=== PATIENT | male | born 1945 | race African-American/Black ===

== ENCOUNTER 2017-03-17 02:20 | Inpatient (IN) | payer MEDICARE, OTHER ==
--- NOTE | ~2017-03-17 | EKG ---
PATIENT: RENNY BAGLEY UNIT #: [id number] Ventricular Rate: 59 BPM Atrial Rate: 59 BPM P-R Interval: 164 ms QRS Duration: 80 ms Q-T Interval: 384 ms QTC Calculation(Bezet): 380 ms P Artesian: 44 degrees Calculated R Artesian: 33 degrees Calculated T Artesian: 67 degrees Diagnosis Line: Sinus bradycardia Diagnosis Line: Otherwise normal ECG Diagnosis Line: No previous ECGs available Diagnosis Line: Confirmed by BOLIVAR MIMS MD ([id number]) on 03/18/2017 Diagnosis Line: 7:31:03 AM INTERPRETING MD: PRASANNA KRUEGER
--- NOTE | ~2017-03-17 | DS ---
Unit #: [id number] #: [id number] Patient: RENNY GROSSMAN [id number] [address] [place], [place] [address] [id number] MR#: [id number] NAME: RENNY GROSSMAN ROOM: 226 Age: 71 Sex: M Admission Date: 03/17/2017 : 1945 Discharge Date: 03/18/2017 Attending Physician: Lora Pardo M.D. Primary Care Physician: No Primary Care Physician DISCHARGE SUMMARY PRINCIPAL DIAGNOSES 1. Acute on likely chronic pancreatitis, alcohol induced. 2. Hypertension. 3. Normocytic anemia. 4. Polysubstance abuse including cocaine and marijuana. 5. Hepatitis C. 6. Chronic alcohol use without evidence of dependence during this hospitalization. 7. Tobaccoism. 8. Mild vitamin B12 deficiency, with vitamin B12 level of 265. 9. Transaminitis, likely secondary to a combination of hepatitis C and chronic alcohol use. 10. Hypomagnesemia. CONSULTANTS None. PROCEDURES None. CLINICAL HISTORY AND HOSPITAL COURSE Mr. Grossman is 71-year-old -[place]vian male who presents to the emergency department with complaints of abdominal pain. Please refer to H and P for further details. The patient was found to have an elevated lipase in the ER and was subsequently admitted. The patient was placed on pain medication, IV fluids, antiemetics and started on a clear liquid diet. The morning following admission, lipase was now down to 75 from greater than 600. Patient was complaining of mild abdominal pain but no further nausea, vomiting or diarrhea. I am going to start him on a full-liquid diet for breakfast and advance as tolerated to heart healthy at lunch. If he is able to tolerate a diet, I think he can safely be discharged home later today. Patient does have a history of hypertension and is on lisinopril at home, though I clinically suspect his pancreatitis is alcohol induced, I am going to change him to Norvasc from lisinopril given tristan-inhibitors can contribute to pancreatitis. Blood pressure here has been stable on Norvasc. Patient was also found to have a few electrolyte abnormalities. These will be replaced prior to discharge. DISCHARGE CONDITION Unit #: [id number] #: [id number] Patient: RENNY GROSSMAN Stable. DISCHARGE STATUS Discharge to home. DISCHARGE MEDICATIONS 1. Zofran oral disintegrating tablets 4 mg p.o. q.6 hours p.r.n. for nausea. 2. Norvasc 10 mg daily with one refill. 3. [place] 5/325 one tablet p.o. q.6 hours p.r.n. for pain. 4. Vitamin B12 1000 mcg p.o. daily which can be purchased [id number]. DISCHARGE INSTRUCTIONS Patient was instructed to follow a heart healthy diet. He can increase activity as tolerated, to refrain from any further illicit drug use, tobacco or alcohol use. FOLLOW UP The patient will follow up with his primary care provider in 2 weeks. Dictated by... Lora Pardo M.D. ALESSANDRA/ilana TD: 03/18/2017 23:36 JOB #: [id number] DISCHARGE SUMMARY Page 1 of 1 X Lora Pardo MD X DISCHARGE SUMMARY
--- NOTE | ~2017-03-17 | HP ---
Unit #: [id number] #: [id number] Patient: RENNY GROSSMAN [id number] [address] [place], [place] [address] [id number] MR#: [id number] NAME: RENNY GROSSMAN ROOM: 226 Age: 71 Sex: M Admission Date: 03/17/2017 : 1945 Attending Physician: Lora Pardo M.D. Primary Care Physician: No Primary Care Physician HISTORY AND PHYSICAL CHIEF COMPLAINT Abdominal pain. HISTORY OF PRESENT ILLNESS Mr. Grossman is a 71-year-old -[place]gand[place] male with a prior history or pancreatitis per history review who presents to the ER for above. The patient states three days ago he developed mid abdominal pain. He describes it as achy intensely. He states he did have some nausea and a couple episodes of nonbloody emesis yesterday. Nausea currently is resolved. He denies having any diarrhea with the onset of symptoms. He denies any melena or hematochezia. He states this is similar to prior episodes of pancreatitis. The patient was seen at [facility] yesterday afternoon at which time he had a lipase of 414. He was instructed to refrain from any alcohol use, have a liquid diet for the next three days and was sent home. He states pain became worse and, thus, he presented to our emergency department. Upon presentation here, patient's vital signs were all normal. Lipase is elevated at 673. Patient has received a liter of normal saline, 4 mg of Zofran, 40 of Protonix, 4 mg of morphine and is being referred for admission. He states his belly pain is a bit better. He denies that eating makes it better or worse. He cannot identify any alleviating factors either. He states his last drink was yesterday. PAST MEDICAL HISTORY 1. Pancreatitis per record review. 2. Hypertension. 3. Alcohol abuse. 4. Tobaccoism. 5. Hepatitis C. PAST SURGICAL HISTORY None. ALLERGIES No known drug allergies. MEDICATIONS Home medications include: Lisinopril 10 mg daily. Hershey 5/325, one tablet p.o. q.6 hours p.r.n. for pain. Zofran oral disintegrating tablet, 4 mg every six hours p.r.n. FAMILY HISTORY Negative for pancreatitis. He denies any heart history or diabetes. He Unit #: [id number] #: [id number] Patient: RENNY GROSSMAN is uncertain about hypertension. SOCIAL HISTORY The patient smokes a pack of cigarettes per day and has done so for at least 30 years. He is somewhat vague on what age he started smoking. He is also vague on how much alcohol he drinks. However, review of [facility] records indicate at least two drinks daily. I am not certain of the amount of alcohol or the type. He denies any illicit drug use. REVIEW OF SYSTEMS Denies any weight gain, weight loss. Denies any chest pain, shortness of breath, palpitations, orthopnea. Is complaining of abdominal pain as per HPI. Denies any difficulty urinating, denies any falls. Otherwise, ten point review of systems was reviewed and is negative. PHYSICAL EXAMINATION VITAL SIGNS: Temperature 98.6, blood pressure 162/97, pulse rate 71, respiratory rate 11. Oxygen saturation is 96% on room air. GENERAL: The patient is arousable but sleepy. He is alert and oriented x3 and does answer questions. HEENT: Pupils equally round, reactive to light bilaterally. Anicteric sclerae. No conjunctival pallor. Oropharynx with mildly dry mucous membranes. No erythema or exudate. Poor dentition with multiple missing teeth noted. NECK: Supple. No lymphadenopathy, no thyromegaly, no JVD. HEART: Regular rate and rhythm without murmur, rub or gallop. LUNGS: Diminished bilaterally but otherwise clear. JOB [id number] ADDENDUM REVIEW OF SYSTEMS Lungs - Denies any shortness of breath, cough. Denies any difficulty urinating. Denies any falls. Denies any new tingling, numbness of extremities. Otherwise, a 10-point review of systems was reviewed and is negative. PHYSICAL EXAMINATION VITAL SIGNS: Temperature 98.6, blood pressure 162/97, pulse rate 71, respiratory rate 11. Oxygen saturation is 96% on room air. GENERAL: The patient is initially sleepy but arousable, alert and oriented x3. HEENT: Pupils equally round, reactive to light bilaterally. Anicteric sclerae. No conjunctival pallor. Oropharynx with mildly dry mucous membranes. No erythema or exudate. Missing most of his teeth. NECK: Supple. No lymphadenopathy, no thyromegaly, no JVD. HEART: Regular rate and rhythm without murmur, rub or gallop. LUNGS: Diminished bilaterally but otherwise clear without wheezes, rhonchi or crackles. ABDOMEN: Diffusely tender greatest in the epigastric and umbilical regions without guarding or rebound. It is not distended. Mildly diminished bowel sounds. I could not appreciate any hepatosplenomegaly. EXTREMITIES: No cyanosis, clubbing or edema. Pedal pulses 2/4. SKIN: Warm. It is mildly dry, particularly on the lower extremities. No other rashes. MUSCULOSKELETAL: No significant joint erythema noted. NEUROLOGIC: Cranial nerves II-XII intact. Sensation, strength and deep Unit #: [id number] #: [id number] Patient: RENNY GROSSMAN tendon reflexes are all grossly normal. PSYCHIATRIC: No suicidal or homicidal ideation. DIAGNOSTIC STUDIES LABORATORY: Blood work done in the emergency department notable for white blood cell count of 5.7, hemoglobin 12.5 with MCV of 94, platelet count of 181,000. CMP reveals a sodium of 139, potassium 3.9, chloride 106, bicarb 26, BUN 17, creatinine 1, glucose 99, AST mildly elevated at 85, ALT 43. Calcium and bilirubin are normal. Lipase is 673, amylase 346 and albumin 3.4. Urinalysis is negative, and urine drug screen is positive for marijuana and cocaine. ASSESSMENT 1. Acute on questionably chronic pancreatitis, likely alcohol induced. 2. Hypertension, currently uncontrolled. 3. Polysubstance abuse including cocaine and marijuana. 4. Normocytic anemia. 5. Daily alcohol use without history of withdrawal. 6. Tobaccoism. PLAN 1. We will admit the patient to inpatient status under med/surg. 2. Will begin IV fluids with D5 normal saline at 150 mL an hour and begin clears. Will also initiate morphine for pain control. I will recheck lipase in the morning. 3. I am going to discontinue lisinopril, given this may contribute to his pancreatitis, and place him on Norvasc. Will follow up blood pressure closely. 4. Will check vitamin B12 and iron levels in regard to the patient's anemia and replace if necessary. 5. CIWA protocol, Ativan only in case the patient has evidence of alcohol withdrawal. 6. Nicotine patch for tobacco abuse. 7. Briefly drug and alcohol counselor regarding polysubstance abuse and cocaine abuse. 8. Lovenox and Protonix for prophylaxis. 9. Anticipate discharge in 24-48 hours. Dictated by Lora Pardo M.D. ALESSANDRA/yeison TD: 03/17/2017 09:47 JOB #: [id number] HISTORY AND PHYSICAL Page 1 of 1 X Lora Pardo MD X HISTORY AND PHYSICAL
[2017-03-17 05:21] LABS: URINE SOURCE CLEAN CATCH
[2017-03-17 05:26] LABS: URINE APPEARANCE CLEAR; URINE BILIRUBIN NEG (NEG); URINE BLOOD NEG (NEG); URINE COLOR YELLOW; URINE GLUCOSE NEG (NEG); URINE KETONE NEG (NEG); URINE LEUKOCYTE ESTERASE NEG (NEG); URINE NITRATE NEG (NEG); URINE PROTEIN NEG (NEG); URINE SPECIFIC GRAVITY 1.021 (1.003-1.035)
[2017-03-17 05:30] LABS: BASOPHIL# 0.1 X10e3 (0-0.3); BASOPHIL% 1.1 % (0-2.5); EOSINOPHIL# 0.1 X10e3 (0-0.7); EOSINOPHIL% 1.9 % (0.0-7.0); HEMATOCRIT 37.5 % (38.0-50.0); HEMOGLOBIN 12.5 gm/dL (13.0-16.0); LYMPHOCYTE% 35.9 % (17.0-45.0); MEAN CELL VOLUME 94.2 FL (83-96); MEAN CORPUSCULAR HEMOGLOBIN 31.4 PG (28-34); MEAN CORPUSCULAR HGB CONC 33.3 g/dL (30-36); MEAN PLATELET VOLUME 9.6 FL (6.5-11.5); MONOCYTE# 0.4 X10e3 (0-1.0); MONOCYTE% 6.8 % (3.0-12.0); NEUTROPHIL# 3.1 X10e3 (1.5-7.1); NEUTROPHIL% 54.3 % (40-75); PLATELET COUNT 181 X10e3 (140-420); RED BLOOD COUNT 3.98 X10e (3.90-5.60); RED CELL DISTRIBUTION WIDTH 13.4 % (11.0-15.5); WHITE BLOOD COUNT 5.7 X10e3 (4.0-10.5)
[2017-03-17 05:31] LABS: CULTURE INDICATED? NO
[2017-03-17 05:32] LABS: DIFF IND NO
[2017-03-17 05:48] LABS: AMPHETAMINE NEG (NEG); BARBITURATES NEG (NEG); BENZODIAZEPINES NEG (NEG); COCAINE POS (NEG); MARIJUANA POS (NEG); OPIATES NEG (NEG); TRICYCLIC ANTIDEPRESSANTS NEG (NEG); U METHADONE NEG (NEG)
[2017-03-17 06:18] LABS: ALBUMIN SERUM 3.4 g/dL (3.5-5.0); ALKALINE PHOSPHATASE 77 U/L (32-92); ALT (SGPT) 43 U/L (10-40); AMYLASE 346 U/L (0-46); AST (SGOT) 45 U/L (10-42); BILIRUBIN, DIRECT 0.2 mg/dL (0.0-0.2); BILIRUBIN,INDIRECT 0.5 mg/dL (0.0-0.9); BILIRUBIN,TOTAL 0.7 mg/dL (0.2-2.0); BLOOD UREA NITROGEN 17 mg/dL (9-23); CALCIUM SERUM 8.9 mg/dL (8.4-10.2); CARBON DIOXIDE 26 mmol/L (22-31); CHLORIDE 106 mmol/L (100-111); GLOM FILT RATE Estimated 88.6 mL/min (>60); GLUCOSE FASTING 99 mg/dL (70-110); LIPASE 673 U/L (22-51); POTASSIUM 3.9 mmol/L (3.5-5.1); PROTEIN TOTAL SERUM 6.8 g/dL (6.0-8.3); SODIUM 139 mmol/L (135-145)
[2017-03-17 06:20] LABS: ALCOHOL BLOOD <5 mg/dL (0)
[2017-03-17] MEDS ORDERED: ZOFRAN ODT4 MG PO (07:00)
[2017-03-17] MEDS ORDERED: LISINOPRIL10 MG PO (07:00)
[2017-03-17] MEDS ORDERED: HYDROCODON-ACE1 EAC7 PO (07:00)
[2017-03-17 09:26] LABS: IRON SERUM 44 ug/dL (45-182); TOTAL IRON BINDING CAPACITY 292 ug/dL (252-460); TRANSFERRIN 208 mg/dL (180-329); TRANSFERRIN SATURATION 15 % (20-50)
[2017-03-18 06:35] LABS: HEMATOCRIT 37.4 % (38.0-50.0); HEMOGLOBIN 12.5 gm/dL (13.0-16.0); MEAN CELL VOLUME 94.2 FL (83-96); MEAN CORPUSCULAR HEMOGLOBIN 31.4 PG (28-34); MEAN CORPUSCULAR HGB CONC 33.4 g/dL (30-36); MEAN PLATELET VOLUME 9.9 FL (6.5-11.5); RED BLOOD COUNT 3.98 X10e (3.90-5.60); RED CELL DISTRIBUTION WIDTH 13.2 % (11.0-15.5)
[2017-03-18 07:28] LABS: ALBUMIN SERUM 3.3 g/dL (3.5-5.0); BILIRUBIN,TOTAL 0.8 mg/dL (0.2-2.0); CREATININE SERUM 0.8 mg/dL (0.6-1.4); GLOM FILT RATE Estimated 105.7 mL/min (>60); MAGNESIUM 1.5 mg/dL (1.6-3.0); POTASSIUM 4.9 mmol/L (3.5-5.1); PROTEIN TOTAL SERUM 6.5 g/dL (6.0-8.3)
[2017-03-18] MEDS ORDERED: NORVASC10 MG PO (11:22)
[2017-03-18] MEDS ORDERED: VITAMIN B122500 MC1 PO (11:24)
== END 2017-03-18 18:43 | disposition home or self-care (01) | DRG 440 ==
LOC: CED 02:20 → C2A 07:10 → CEDOF 07:10 → CED 07:26 → C2A 09:31 → CEDOF 09:31 → C2A 03-18 18:43
PROVIDERS: Internal Medicine; Student in an Organized Health Care Education/Training Program
DX: K85.20 Alcohol induced acute pancreatitis without necrosis or infection (principal); E83.42 Hypomagnesemia; I10 Essential (primary) hypertension; K86.0 Alcohol-induced chronic pancreatitis; D64.9 Anemia, unspecified; F14.10 Cocaine abuse, uncomplicated; F12.10 Cannabis abuse, uncomplicated; B19.20 Unspecified viral hepatitis C without hepatic coma; F17.210 Nicotine dependence, cigarettes, uncomplicated; E53.8 Deficiency of other specified B group vitamins; R74.0 Nonspecific elevation of levels of transaminase and lactic acid dehydrogenase [LDH]; Z72.89 Other problems related to lifestyle; F10.10 Alcohol abuse, uncomplicated; F19.10 Other psychoactive substance abuse, uncomplicated
CPT/HCPCS: 36415; 80048; 80053; 80076; 80307; 81003; 82150; 82607; 83540; 83550; 83690; 83735; 84484; 85025; 85027; 93005; 96361; 96374; 96375; 99285; C9113; G0480; J1650; J2270; J2405; J3475